=== PATIENT | male | born 1980 | race Caucasian/White ===

== ENCOUNTER 2016-12-03 10:39 | Emergency (ER) | payer MEDICAID ==
[~2016-12-03] VITALS: Ht 172.7 cm; Wt 72.6 kg
[2016-12-03] MEDS ORDERED: NKM (10:49)
[2016-12-03] MEDS ORDERED: Diazepam 10mg/2ml Inj IV ONE (11:00)
[2016-12-03 12:03] LABS: BASOPHILS % (AUTO) 0.7 % (0.0-2.0); EOSINOPHILS % (AUTO) 0.7 % (0.0-3.0); LYMPHOCYTES % (AUTO) 12.7 % (20.0-45.0); MEAN CORPUSCULAR HEMOGLOBIN 26.4 PG (27.0-31.0); MEAN CORPUSCULAR HGB CONC 32.1 G/DL (32.0-36.0); MEAN CORPUSCULAR VOLUME 82 FL (80-99); MEAN PLATELET VOLUME 6.6 FL (6.5-10.1); MONOCYTES % (AUTO) 6.1 % (1.0-10.0); NEUTROPHILS % (AUTO) 79.8 % (45.0-75.0); PLATELET COUNT 290 K/UL (150-450); RED CELL DISTRIBUTION WIDTH 12.5 % (11.6-14.8); WHITE BLOOD COUNT 9.3 K/UL (4.8-10.8)
[2016-12-03 12:23] LABS: TROPONIN I < 0.30 ng/mL (<=0.30)
[2016-12-03 12:27] LABS: ALANINE AMINOTRANSFERASE 41 U/L (3-41); ALBUMIN/GLOBULIN RATIO 1.6 (1.0-2.7); ANION GAP 14 (5-15); ASPARTATE AMINO TRANSFERASE 24 U/L (5-40); CALCIUM 9.9 mg/dL (8.6-10.2); CARBON DIOXIDE 23 mEQ/L (20-30); CHLORIDE 100 mEQ/L (98-107); CREATININE 1.1 mg/dL (0.7-1.2); GLOMERULAR FILTRATION RATE > 60 mL/min (>60); HEMOLYSIS 3; POTASSIUM 4.2 mEQ/L (3.4-4.9); SODIUM 137 mEQ/L (135-145); TOTAL PROTEIN 7.5 g/dL (6.6-8.7)
[2016-12-03] MEDS ORDERED: ZOFRAN4 MG ORAL (12:47)
[2016-12-03] MEDS ORDERED: VALIUM10 MG ORAL (12:47)
[2016-12-03] MEDS ORDERED: AMOXICILLIN500 MG ORAL (12:47)
[2016-12-03] MEDS ORDERED: MECLIZINE HCL25 MG ORAL (12:56)
[2016-12-03 12:57] VITALS: BP 155/77
--- NOTE | 2016-12-03 13:22 | Emergency Room Report ---
History of Present Illness General Chief Complaint: Dizziness Source: Patient Present Illness HPI Patient presents emergency department today complaining of dizziness. Patient' s dizziness seems to be worse with position. Patient states that this occurred a couple days ago. It started with some ringing in his right ear intravenously became worse. He states that he's not able to eat because of nausea and vomiting. He denies any chest pain shortness of breath. Denies any headache. Denies any numbness tingling or weakness. Symptoms are noted to be severe. He has never had episodes of this before. He also notes that he has of sinus congestion with sinus tenderness on the right side of his face. He has not been treated for sinusitis in the past. He also admits to doing cocaine a couple days ago when this occurred. He denies any chest pain shortness of breath.No other modifying factors. No other associated signs and symptoms. No other complaints were noted. Allergies: Coded Allergies: No Known Allergies (Unverified , 12/03/16) Patient History Past Medical History: none Past Surgical History: none Pertinent Family History: none Social History: Reports: alcohol use, drug use, smoking Reviewed Nursing Documentation: PMH: Agreed, PSxH: Agreed Nursing Documentation-PMH Past Medical History: No Stated History Review of Systems All Other Systems: negative except mentioned in HPI Physical Exam Vital Signs Date Time Temp Pulse Resp B/P Pulse Ox O2 Delivery O2 Flow Rate FiO2 12/03/16 10:45 97.5 70 16 155/77 98 Room Air Sp02 EP Interpretation: reviewed, normal General Appearance: alert, moderate distress Head: atraumatic Eyes: bilateral eye PERRL, bilateral eye normal inspection ENT: normal ENT inspection, hearing grossly normal, normal voice Neck: normal inspection, full range of motion, supple, no bony tend Respiratory: normal inspection, lungs clear, normal breath sounds, no respiratory distress, no retraction, no wheezing Cardiovascular #1: regular rate, rhythm, no edema Gastrointestinal: normal inspection, normal bowel sounds, non tender, soft, no guarding, no hernia Genitourinary: no CVA tenderness Musculoskeletal: normal inspection, back normal, normal range of motion Neurologic: normal inspection, alert, responsive, speech normal, other - vertigo, worse with movement Psychiatric: judgement/insight normal, other - dizzy Skin: normal inspection, normal color, no rash Medical Decision Making Diagnostic Impression: Primary Impression: Dizziness Additional Impression: Vertigo ER Course Patient presents emergency department today complaining of dizziness. Differential diagnoses include acute arrhythmia, acute CVA, vertigo, sinusitis, otitis media just to name a few.Given the severity of the patient's presentation I felt this is a highly complex patient. This patient required extensive workup. Patient's laboratory workup was negative. Patient received fluids Valium and Zofran and felt much better. Patient is now ambulatory without difficulty. I did offer to perform head CT which the patient declined. Patient does complain some sinus pain given the intense vertigo and sinus symptoms I was concerned the patient would have a complicated sinusitis. Therefore I felt the patient required antibiotics. I do not feel that this is consistent with a viral sinusitis. I felt it was bacterial. Patient is advised followup with outpatient ENT.Patient is advised to follow up with primary doctor in 2-3 days and return the emergency room for any worsening symptoms and as needed. Labs Test 12/03/16 11:25 White Blood Count 9.3 K/UL (4.8-10.8) Red Blood Count 6.30 M/UL (4.70-6.10) Hemoglobin 16.6 G/DL (14.2-18.0) Hematocrit 51.6 % (42.0-52.0) Mean Corpuscular Volume 82 FL (80-99) Mean Corpuscular Hemoglobin 26.4 PG (27.0-31.0) Mean Corpuscular Hemoglobin Concent 32.1 G/DL (32.0-36.0) Red Cell Distribution Width 12.5 % (11.6-14.8) Platelet Count 290 K/UL (150-450) Mean Platelet Volume 6.6 FL (6.5-10.1) Neutrophils (%) (Auto) 79.8 % (45.0-75.0) Lymphocytes (%) (Auto) 12.7 % (20.0-45.0) Monocytes (%) (Auto) 6.1 % (1.0-10.0) Eosinophils (%) (Auto) 0.7 % (0.0-3.0) Basophils (%) (Auto) 0.7 % (0.0-2.0) Sodium Level 137 mEQ/L (135-145) Potassium Level 4.2 mEQ/L (3.4-4.9) Chloride Level 100 mEQ/L (98-107) Carbon Dioxide Level 23 mEQ/L (20-30) Anion Gap 14 (5-15) Blood Urea Nitrogen 25 mg/dL (7-23) Creatinine 1.1 mg/dL (0.7-1.2) Estimat Glomerular Filtration Rate > 60 mL/min (>60) Glucose Level 97 mg/dL (74-106) Calcium Level 9.9 mg/dL (8.6-10.2) Total Bilirubin 0.8 mg/dL (0.0-1.2) Aspartate Amino Transf (AST/SGOT) 24 U/L (5-40) Alanine Aminotransferase (ALT/SGPT) 41 U/L (3-41) Alkaline Phosphatase 58 U/L (40-129) Total Creatine Kinase 75 U/L (38-174) Troponin I < 0.30 ng/mL (<=0.30) Total Protein 7.5 g/dL (6.6-8.7) Albumin 4.7 g/dL (3.5-5.2) Globulin 2.8 g/dL Albumin/Globulin Ratio 1.6 (1.0-2.7) EKG Diagnostic Results Rate: normal Rhythm: NSR ST Segments: no acute changes Rhythm Strip Diag. Results EP Interpretation: yes Rate: 62 Rhythm: NSR, no PVC's, no ectopy Last Vital Signs Date Time Temp Pulse Resp B/P Pulse Ox O2 Delivery O2 Flow Rate FiO2 12/03/16 12:57 97.5 16 155/77 98 Room Air 12/03/16 10:45 70 Status: improved Disposition: HOME, SELF-CARE Condition: Stable Scripts Meclizine Hcl* (MECLIZINE*) 25 Mg Tablet 25 MG ORAL THREE TIMES A DAY for 10 Days, #30 TAB Prov: ALONZO NEWMAN M.D. 12/03/16 Amoxicillin* (AMOXIL*) 500 Mg Capsule 500 MG ORAL THREE TIMES A DAY, #30 CAP Prov: ALONZO NEWMAN M.D. 12/03/16 Ondansetron (Zofran) 4 Mg Tablet 4 MG ORAL Q6H Y for Nausea & Vomiting, #15 TAB 0 Refills Prov: ALONZO NEWMAN M.D. 12/03/16 Diazepam* (VALIUM*) 10 Mg Tablet 10 MG ORAL TID Y for for dizziness, #30 TAB 0 Refills Prov: ALONZO NEWMAN M.D. 12/03/16 Patient Instructions: Dizziness ALONZO NEWMAN M.D. Dec 03, 2016 13:22
== END 2016-12-03 12:55 | disposition home or self-care (01) ==
LOC: EMR 12:40
DX: R42 Dizziness and giddiness (principal); F17.200 Nicotine dependence, unspecified, uncomplicated
CPT/HCPCS: 36415; 80053; 82550; 84484; 85025; 93005; 96374; 96375; 99284; J2405; J3360